=== PATIENT | female | born 1940 | race Caucasian/White ===

== ENCOUNTER 2021-01-09 15:10 | Emergency (ER) | payer MEDICARE ==
[~2021-01-09] VITALS: Ht 157.5 cm; Wt 45.8 kg
--- NOTE | 2021-01-09 15:15 | NUR ---
BIB ra c/o scalp laceration s/p GLF Denies LOC, neck, or back pain. Patient presented with R eyebrow laceration. A/OX4, breathing even and unlabored, denies any change in loc. patient in bed, kept comfortable.
--- NOTE | 2021-01-09 15:22 | NUR ---
Patient taken to CT
--- NOTE | 2021-01-09 15:50 | NUR ---
PATIENT CAME BACK FROM CT. WOUND CLEANSED
[2021-01-09] MEDS ORDERED: LIDOCAINE 1%-EPI 1:100,000 20 ML VIAL ONE (15:51)
[2021-01-09] MEDS ORDERED: TDAP [DIPH/PERTUSSIS/TET] 0.5 ML VIAL IM ONE (15:52)
[2021-01-09] MEDS: TDAP [DIPH/PERTUSSIS/TET] 0.5 ML VIAL IM ONE (15:55)
--- NOTE | 2021-01-09 16:12 | NUR ---
ALLYSSA ROMANO AT BEDSIDE FOR LAC REPAIR.
[2021-01-09] MEDS ORDERED: CEPH500C2 PO (16:52)
--- NOTE | 2021-01-09 17:08 | NUR ---
PATIENT A/OX4, BREATHING EVEN AND UNLABORED, NO SOB NOTED, NEEDS ATTENDED. AT BEDSIDE. LAC REPAIRED BY ALLYSSA ROMANO, COVERED WITH DRY DRESSING. DISCHARGE INSTRUCTIONS PROVIDED. Patient discharged to home in stable condition. Written and verbal after care instructions given. Patient verbalizes understanding of instruction.
[2021-01-09 17:11] VITALS: BP 150/80
== END 2021-01-09 17:11 | disposition home or self-care (01) ==
LOC: ER 15:23
DX: S01.111A Laceration without foreign body of right eyelid and periocular area, initial encounter (principal); R51.9 Headache, unspecified; E03.9 Hypothyroidism, unspecified; Z90.89 Acquired absence of other organs; Z79.899 Other long term (current) drug therapy; W18.39XA Other fall on same level, initial encounter; Y93.89 Activity, other specified; Y92.89 Other specified places as the place of occurrence of the external cause; Y99.8 Other external cause status
CPT/HCPCS: 12013; 70450; 70486; 72125; 90471; 90715; 99285; A6403; J3490